=== PATIENT | male | born 1955 | race African-American/Black ===

== ENCOUNTER → 2016-09-05 | Outpatient (CLI) | payer MEDICARE | LOC: RAD 08:38 | PROVIDERS: ATTEND Specialist | DX: M54.16 Radiculopathy, lumbar region (principal) | CPT/HCPCS: 72148 ==

== ENCOUNTER → 2017-07-13 | Outpatient (CLI) | payer MEDICARE | LOC: LAB 17:17 | PROVIDERS: ATTEND Orthopaedic Surgery | DX: M51.16 Intervertebral disc disorders with radiculopathy, lumbar region (principal); Z53.8 Procedure and treatment not carried out for other reasons | CPT/HCPCS: 36415; 80307 ==

== ENCOUNTER → 2019-02-06 | Outpatient (CLI) | payer MEDICARE ==
--- NOTE | 2019-02-06 11:57 | RADIOLOGY REPORT (SQ) ---
EXAM DESCRIPTION: U/S ABD AORTIC SCREENING COMPLETED DATE/TIME: 02/06/2019 10:42 am REASON FOR STUDY: ENCOUNTER FOR SCREENING FOR CARDIOVASCULAR DISORDERS Z13.6 ENCOUNTER FOR SCREENIN G FOR CARDIOVASCULAR DISORDERS COMPARISON: None. TECHNIQUE: Static and dynamic grayscale images acquired of the aorta and stored on PACs. Selected co inna Doppler and spectral images recorded. LIMITATIONS: None. FINDINGS: AORTIC CALIBER MAXIMAL PROXIMAL: 2.4 cm. MID: 2.2 cm. DISTAL: 1.8 cm. Common iliac arteries are not visualized. IMPRESSION: NO ABDOMINAL AORTIC ANEURYSM. COMMENT: Aortic aneurysm imaging followup: Negative, no followup necessary. *Based upon the Society for Vascular Surgery Guidelines: J Vasc Surg. 2009 Oct;50(4 Suppl):S2-49 *For aortas of maximum diameter of 2.6-2.9 cm meeting the criteria for AAA (?1.5 x proximal normal se gment) TECHNICAL DOCUMENTATION: JOB ID: [id number] [employer]- All Rights Reserved Reading location - IP/workstation name: [email or web address]
== END ==
LOC: RAD 09:57
PROVIDERS: ATTEND Family Medicine
DX: Z13.6 Encounter for screening for cardiovascular disorders (principal); F17.210 Nicotine dependence, cigarettes, uncomplicated
CPT/HCPCS: 36415; 85025; 80053; 80061; 76706; G0103

== ENCOUNTER → 2019-02-06 | Outpatient (CLI) | payer MEDICARE ==
[2019-02-06 10:41] LABS: ABSOLUTE EOSINOPHILS # (AUTO) 0.6 10^3/uL (0.0-0.6); ABSOLUTE LYMPHOCYTES (AUTO) 1.6 10^3/uL (0.5-4.7); ABSOLUTE MONOCYTES (AUTO) 0.5 10^3/uL (0.1-1.4); ABSOLUTE NEUT (AUTO) 2.4 10^3/uL (1.7-8.2); BASOPHILS % (AUTO) 0.6 % (0-2); EOSINOPHILS % (AUTO) 11.2 % (0-6); HEMATOCRIT 37.3 % (37.9-51.0); HEMOGLOBIN 12.1 g/dL (13.5-17.0); LYMPHOCYTES % (AUTO) 31.4 % (13-45); MEAN CORPUSCULAR HEMOGLOBIN 24.7 pg (27.0-33.4); MEAN CORPUSCULAR HGB CONC 32.5 g/dL (32.0-36.0); MEAN CORPUSCULAR VOLUME 76 fl (80-97); MONOCYTES % (AUTO) 9.6 % (3-13); PLATELET COUNT 178 10^3/uL (150-450); RED BLOOD COUNT 4.91 10^6/uL (4.35-5.55); RED CELL DISTRIBUTION WIDTH 14.7 % (11.5-14.0); SEGMENTED NEUTROPHILS % (AUTO) 47.2 % (42-78); TOTAL CELLS COUNTED % (AUTO) 100 %
[2019-02-06 11:00] LABS: ALANINE AMINOTRANSFERASE 15 U/L (21-72); ALBUMIN 4.3 g/dL (3.5-5.0); ALKALINE PHOSPHATASE 82 U/L (38-126); ANION GAP 9 (5-19); ASPARTATE AMINO TRANSFERASE 24 U/L (17-59); BILIRUBIN,DIRECT 0.3 mg/dL (0.0-0.4); BILIRUBIN,TOTAL 0.3 mg/dL (0.2-1.3); BLOOD UREA NITROGEN 8 mg/dL (7-20); CALCIUM 11.7 mg/dL (8.4-10.2); CARBON DIOXIDE 30 mmol/L (22-30); CHLORIDE 104 mmol/L (98-107); CHOLESTEROL 142.71 mg/dL (0-200); GLUCOSE 98 mg/dL (75-110); POTASSIUM 4.1 mmol/L (3.6-5.0); SODIUM 142.9 mmol/L (137-145); TOTAL PROTEIN 7.8 g/dL (6.3-8.2); TRIGLYCERIDES 171 mg/dL (<150)
[2019-02-06 11:12] LABS: DIRECT LDL 67 mg/dL (<100)
[2019-02-06 11:33] LABS: VLDL CHOLESTEROL 34.2 mg/dL (10-31)
== END ==
LOC: OD 09:10
PROVIDERS: ATTEND Family Medicine
DX: Z12.5 Encounter for screening for malignant neoplasm of prostate (principal); Z13.1 Encounter for screening for diabetes mellitus; I10 Essential (primary) hypertension; Z13.220 Encounter for screening for lipoid disorders
CPT/HCPCS: 36415; 85025; 80053; 80061; G0103

== ENCOUNTER → 2019-02-07 | Outpatient (CLI) | payer MEDICARE ==
--- NOTE | 2019-02-07 19:38 | XCELERA REPORT ---
[address] [address] Transthoracic Echocardiogram Report Name: VAISHNAVI SOFIA Age: 64 yrs Gender: Male : 1955 Patient Status: Outpatient Patient Location: [facility] Study Date: 02/07/2019 02:15 PM Height: 70 in Weight: 180 lb BSA: 2.0 m2 Reason For Study: LV HYPERTROPHY ON EKG Ordering Physician: PHILIP JACK Performed By: Hieu Severino Interpretation Summary Poor basal LV visualization on apical views. No significant posterior pericardial effusion. Normal aortic root except calcification. Mild AV sclerosis, no no AR, 3 cusps AV. Mild mitral annular calcification, no MS, no MV, mild MR with mild LA enlargement, JOHN 36.5cc/m2. Concentric LVH mod, with apical hypertrophy. Probably basal LV hypokinesis in apical views. LVEF is normal >55-60%, disagree with biplane analysis by electromechanical assembly technician. No LV enlargement. Stage I LV diastolic dysfunction. R heart appears normal. TRmild, derived RVSP is normal and doesnot suggest pulm hypertension. MMode/2D Measurements & Calculations RVDd: 3.2 cm LVIDd: 4.8 cm FS: 26.8 % Ao root diam: IVSd: 1.1 cm LVIDs: 3.5 cm EDV(Teich): 3.1 cm LVPWd: 1.2 cm 106.6 ml Ao root area: ESV(Teich): 50.8 ml 7.6 cm2 LA dimension: EF(Teich): 52.3 % 4.0 cm LVLd ap4: 8.9 cm SV(MOD-sp4): EDV(MOD-sp4): 67.0 ml 113.0 ml LVLs ap4: 7.2 cm ESV(MOD-sp4): 46.0 ml EF(MOD-sp4): 59.3 % Doppler Measurements & Calculations MV E max rebekah: MV dec time: Ao V2 max: LV V1 max P.0 cm/sec 0.14 sec 130.9 cm/sec 1.8 mmHg MV A max rebekah: Ao max P.9 mmHgLV V1 max: 58.9 cm/sec 66.6 cm/sec MV E/A: 0.92 PA V2 max: PI end-d rebekah: TR max rebekah: 93.8 cm/sec 131.4 cm/sec 203.6 cm/sec PA max P.5 mmHg TR max P.6 mmHg Left Ventricle The left ventricle is normal in size. Apical hypertrophy is present. The echo findings are consistent with hypertrophic cardiomyopathy. IVS/PW = 1.99CM/1.52CM. The left ventricular ejection fraction is within normal limits. Doppler measurements suggest impaired left ventricular relaxation, which is associated with grade I/IV or mild diastolic dysfunction. Regional wall motion abnormalities cannot be excluded due to limited visualization. SEE PICTORALS, POOR APICAL VIEW, BASAL LV INCOMPLETE VISUALIZATION, SUSPECT HYPOKINESIS. There is no thrombus. Right Ventricle The right ventricle is normal size. The right ventricular systolic function is normal. Atria The right atrium is normal in size. The left atrial size is normal. There is no Doppler evidence for an interatrial shunt. Mitral Valve There is mild mitral annular calcification. The mitral valve is normal in structure and function. There is no evidence of mitral valve prolapse. There is no mitral valve stenosis. There is a mild amount of mitral regurgitation. Aortic Valve The aortic valve is trileaflet. The aortic valve opens well. The aortic valve is sclerotic and shows some degree of functional abnormality. There is no aortic valvular vegetation. There is no aortic valve stenosis. No aortic regurgitation is present. Tricuspid Valve The tricuspid valve is not well visualized, but is grossly normal. There is a trace or physiologic amount of tricuspid regurgitation. Right ventricular systolic pressure is normal. Pulmonic Valve The pulmonic valve is not well visualized. There is a trace or physiologic amount of pulmonic regurgitation. Great Vessels There is aortic root sclerosis/calcification. Effusions There is no pericardial effusion. I WMSI = 1.25 % Normal = 75 Segments Size X - Cannot 1 - Normal 2 - 3 - Akinetic4 - 1-2 small Interpret Hypokinetic Dyskinetic 3-5 moderate 5 - 6-14 large Aneurysmal 15-16 diffuse : PHILIP JACK > Fer Walters
== END ==
LOC: SP 13:30
PROVIDERS: ATTEND Family Medicine
DX: I51.7 Cardiomegaly (principal); R09.89 Other specified symptoms and signs involving the circulatory and respiratory systems
CPT/HCPCS: 93306

== ENCOUNTER → 2019-02-11 | Outpatient (CLI) | payer MEDICARE ==
--- NOTE | 2019-02-11 11:29 | RADIOLOGY REPORT (SQ) ---
EXAM DESCRIPTION: CAROTID DOPPLER COMPLETED DATE/TIME: 02/11/2019 9:43 am REASON FOR STUDY: BRUIT R09.89 OTH SYMPTOMS AND SIGNS INVOLVING THE CIRC AND RESP SY COMPARISON: None. TECHNIQUE: Grayscale ultrasound, Doppler velocity and spectra, and color Doppler images acquired of the extra-cranial carotid and vertebral arteries. Images stored on PACS. LIMITATIONS: None. FINDINGS: RIGHT CAROTID CCA Velocities: Within normal limits. ICA Velocities Peak systolic 80 cm/s. End diastolic 31 cm/s. Proximal ICA/CCA peak systolic ratio 0.8. Spectra normal. No significant plaque. LEFT CAROTID CCA Velocities: Within normal limits. ICA Velocities Peak systolic 92 cm/s. End diastolic 33 cm/s. Proximal ICA/CCA peak systolic ratio 0.94. There is limited plaque in the carotid bulb. VERTEBRAL ARTERIES: Antegrade flow. Normal waveforms. SUBCLAVIAN ARTERIES: No finding. OTHER: No other significant finding. IMPRESSION: NO HEMODYNAMICALLY SIGNIFICANT STENOSIS. COMMENT: Quality ID #[id number]: Velocity criteria are extrapolated from the diameter data as defined by t he Society of Radiologists in Ultrasound Consensus Conference. Radiology 2003: 229; 340-346. TECHNICAL DOCUMENTATION: JOB ID: [id number] [employer]- All Rights Reserved Reading location - IP/workstation name: [email or web address]
== END ==
LOC: SP 08:42
PROVIDERS: ATTEND Family Medicine
DX: I51.7 Cardiomegaly (principal)
CPT/HCPCS: 93880

== ENCOUNTER → 2019-03-07 | Outpatient (CLI) | payer MEDICARE ==
--- NOTE | 2019-03-07 11:07 | RADIOLOGY REPORT (SQ) ---
EXAM DESCRIPTION: CHEST PA/LATERAL COMPLETED DATE/TIME: 03/07/2019 10:53 am REASON FOR STUDY: RETINAL VEIN OCCLUSION LEFT EYE COMPARISON: None. EXAM PARAMETERS: NUMBER OF VIEWS: two views TECHNIQUE: Digital Frontal and Lateral radiographic views of the chest acquired. RADIATION DOSE: NA LIMITATIONS: none FINDINGS: LUNGS AND PLEURA: No opacities, masses or pneumothorax. No pleural effusion. MEDIASTINUM AND HILAR STRUCTURES: No masses or contour abnormalities. HEART AND VASCULAR STRUCTURES: Heart normal size. No evidence for failure. BONES: No acute findings. HARDWARE: None in the chest. OTHER: No other significant finding. IMPRESSION: NO SIGNIFICANT RADIOGRAPHIC FINDING IN THE CHEST. TECHNICAL DOCUMENTATION: JOB ID: [id number] [employer]- All Rights Reserved Reading location - IP/workstation name: [email or web address]
[2019-03-07 12:03] LABS: IRON(TIBC) 77.8 ug/dL (49-181)
== END ==
LOC: OD 10:28
PROVIDERS: ATTEND Family Medicine
DX: H34.8122 Central retinal vein occlusion, left eye, stable (principal); D50.8 Other iron deficiency anemias; E83.52 Hypercalcemia
CPT/HCPCS: 36415; 71046; 82164; 82330; 82728; 83540; 83550; 83970

== ENCOUNTER 2019-10-01 10:37 | Emergency (ER) | payer MEDICARE ==
[2019-10-01] MEDS ORDERED: PREDNISONE 20 MG TABLET PO ONE (10:55)
--- NOTE | 2019-10-01 11:03 | ER Document Report ---
HPI - HPI Time Seen by Provider: 10/01/19 10:52 Pain Level: 2 Context: CHIEF COMPLAINT: Sciatic symptoms for 1 week HPI: 64-year-old male presenting to the emergency department complaining of sciatic symptoms in the right leg for 1 week. Complains of pain that seems to radiate through the right gluteus and down the lateral right leg to the ankle. Patient states symptoms have been present for approximately a week. Denies incontinence of urine or bowel. Denies weakness in the leg. Does report a history of low back surgery [address] Marquez. States he has an appointment with our office October 15. No fever. No abdominal pain. No rash ROS: See HPI - all other systems were reviewed and are otherwise negative Constitutional: no fever GI: no vomiting, no diarrhea, no abdominal pain : no dysuria Integumentary: no rash Allergy: no hives Musculoskeletal: + extremity pain or swelling Neurological: no weakness MEDICATIONS: I agree with the patient medications as charted by the RN. ALLERGIES: I agree with the allergies as charted by the RN. PAST MEDICAL HISTORY/PAST SURGICAL HISTORY: Reviewed and agree as charted by RN. SOCIAL HISTORY: Reviewed and agree as charted by RN. FAMILY HISTORY: No significant familial comorbid conditions directly related to patient complaint EXAM: Reviewed vital signs as charted by RN. CONSTITUTIONAL: Alert and oriented and responds appropriately to questions. Well-appearing; well-nourished, mild distress secondary to pain HEAD: Normocephalic; atraumatic EYES: PERRL; Conjunctivae clear, sclerae non-icteric ENT: normal nose; no rhinorrhea; moist mucous membranes; pharynx without lesions noted NECK: Supple without meningismus; non-tender; no cervical lymphadenopathy, no masses CARD: symmetric distal pulses RESP: Normal chest excursion without splinting or tachypnea ABD/GI: Normal bowel sounds; non-distended; soft, non-tender, no rebound, no guarding; no palpable organomegaly or masses. BACK: The back appears normal and is non-tender to palpation in the lumbar back, there is no CVA tenderness EXT: Normal ROM in all joints; non-tender to palpation; no cyanosis, no effusions, no edema SKIN: Normal color for age and race; warm; dry; good turgor; no acute lesions noted NEURO: Moves all extremities equally; Motor and sensory function intact. Strength equal 5/5 bilateral lower extremities. Sensation intact and equal bilateral lower extremities. Straight leg raise is negative. No saddle anesthesia on exam. DTRs 2+ intact and equal bilateral lower extremities. PSYCH: The patient's mood and manner are appropriate. Grooming and personal hygiene are appropriate. MDM: 64-year-old male with sciatic symptoms over the last week. States he has had these before and it is typical of the sciatica he gets. No fever. No incontinence of urine or bowel. No saddle anesthesia on exam suggesting cauda equina. He has an appointment with his orthopedic in [address] him on a short course of pain medication steroids with return instructions - REPRODUCTIVE Reproductive: DENIES: : Past Medical History - Social History Smoking Status: Current Every Day Smoker Frequency of alcohol use: None Drug Abuse: None Family History: Reviewed & Not Pertinent Patient has suicidal ideation: No Patient has homicidal ideation: No Vertical Provider Document - INFECTION CONTROL TRAVEL OUTSIDE OF THE [place] IN LAST 30 DAYS: No Course - Vital Signs Vital signs: Temp Pulse Resp BP Pulse Ox 97.8 F 88 16 183/102 H 97 10/01/19 10:47 10/01/19 10:47 10/01/19 10:47 10/01/19 10:47 10/01/19 10:47 Discharge - Discharge Clinical Impression: Sciatica, right side Condition: Stable Disposition: HOME, SELF-CARE Additional Instructions: Medications as prescribed no driving if taking narcotics for pain. Follow-up closely with your orthopedic physician call today to advise them of your ER visit. Return to the emergency department for incontinence of urine or bowel Prescriptions: Prednisone [Deltasone 20 mg Tablet] 2 tab PO DAILY 5 Days #10 tablet Hydrocodone/Acetaminophen [Magnolia 5-325 mg Tablet] 1 tab PO Q4 PRN #10 tablet PRN Reason: Referrals: PHILIP JACK MD [Primary Care Provider] - Follow up as needed WILBERTO MARQUEZ MD [ASSOCIATE] - Follow up as needed
[2019-10-01 11:17] VITALS: BP 182/88
== END 2019-10-01 11:24 | disposition home or self-care (01) ==
LOC: ER 10:37
DX: M54.31 Sciatica, right side (principal); F17.200 Nicotine dependence, unspecified, uncomplicated
CPT/HCPCS: 99283; A9270; J7512

== ENCOUNTER 2019-10-07 10:36 | Emergency (ER) | payer MEDICARE ==
[2019-10-07 11:07] VITALS: BP 167/78
--- NOTE | 2019-10-07 11:53 | ER Document Report ---
HPI - HPI Patient complains to provider of: Low back pain Time Seen by Provider: 10/07/19 11:34 Onset: Other - 2 Weeks Onset/Duration: Persistent Quality of pain: Achy Pain Level: 3 Context: She presents complaining of low back pain for the past 2 weeks. Patient states that he was here recently and received a prescription for pain medicine. Patient denies any fever or urinary symptoms. Patient does have a history of chronic back pain and previous spinal surgery. Patient has made appointment to see his surgeon but is not until 8 days. Patient states pain radiates to the right lower extremity Associated Symptoms: Other - Low back pain. denies: Fever, Nausea, Vomiting Exacerbated by: Movement Relieved by: Denies Similar symptoms previously: Yes Recently seen / treated by doctor: Yes - ROS ROS below otherwise negative: Yes Systems Reviewed and Negative: Yes All other systems reviewed and negative - CONSTITUTIONAL Constitutional: DENIES: Fever, Chills - NEURO Neurology: DENIES: Weakness - GASTROINTESTINAL Gastrointestinal: DENIES: Nausea - MUSCULOSKELETAL Musculoskeletal: REPORTS: Extremity pain, Back Pain - DERM Skin Color: Normal Skin Problems: None Past Medical History - General Information source: Patient - Social History Smoking Status: Current Every Day Smoker Frequency of alcohol use: None Drug Abuse: None Occupation: None Family History: Reviewed & Not Pertinent Patient has suicidal ideation: No Patient has homicidal ideation: No - Past Medical History Cardiac Medical History: Reports: Hx Hypertension Musculoskeletal Medical History: Reports Hx Arthritis Past Surgical History: Reports: Hx Orthopedic Surgery Vertical Provider Document - CONSTITUTIONAL Agree With Documented VS: Yes Exam Limitations: No Limitations General Appearance: WD/WN, No Apparent Distress Notes: PHYSICAL EXAMINATION: GENERAL: Well-appearing, well-nourished and in no acute distress. HEAD: Atraumatic, normocephalic. EYES: sclera clear, anicteric, conjunctiva are normal. ENT: nares patent, Moist mucous membranes. NECK: Normal range of motion, supple no lymphadenopathy LUNGS: respirations unlabored HEART: Regular rate and rhythm without murmurs EXTREMITIES: Normal range of motion, no pitting or edema. No cyanosis. Gait normal, pt ambulates without difficulty BACK: Right lumbar paraspinal tenderness, no midline tenderness, no deformities or step-offs. No CVA tenderness. NEUROLOGICAL: Cranial nerves grossly intact. Normal speech, normal gait. No saddle anesthesia. PSYCH: Normal mood, normal affect. SKIN: Warm, Dry, normal turgor, no rashes or lesions noted. - INFECTION CONTROL TRAVEL OUTSIDE OF THE [place] IN LAST 30 DAYS: No Course - Re-evaluation Re-evalutation: 10/07/19 11:49 Patient presents with flareup of low back pain. Patient does have a history of back surgery distantly in the past. Patient does have an appointment with his orthopedic surgeon in 8 days. Patient advised that the emergency department does not refill narcotic pain medication. Patient encouraged to see his primary doctor for any persistent pain problems. Patient advised that he may need to see pain management for any persistent pain symptoms. Patient advised that we will give a short course of medicine but that he may not be able to get refills for chronic painful conditions in the future. The patient presents with low back pain without signs of spinal cord compression, cauda equina syndrome, infection, aneurysm, or other serious etiology. The patient is neurologically intact. Given the extremely risk of these diagnoses further testing and evaluation for these possibilities does not appear to be indicated at this time. Patient has been instructed to return if the symptoms worsen or change in any way. - Vital Signs Vital signs: Temp Pulse Resp BP Pulse Ox 98.6 F 69 16 167/78 H 100 10/07/19 11:06 10/07/19 11:06 10/07/19 11:06 10/07/19 11:06 10/07/19 11:06 Discharge - Discharge Clinical Impression: Sciatica, right side Condition: Stable Disposition: HOME, SELF-CARE Instructions: Ice Packs ([facility]), Low Back Pain ([facility]), Oral Narcotic Medication ([facility]) Additional Instructions: Return immediately for any new or worsening symptoms Followup with your primary care provider, call tomorrow to make a followup appointment Follow-up with your primary doctor. They may need to make a referral for pain management to help with your pain symptoms. Keep your orthopedic appointment as scheduled Prescriptions: Lidocaine [Lidoderm 5% (700 mg) Transdermal Patch] 1 patch TP DAILY PRN #10 adh..patch PRN Reason: Tramadol HCl [Ultram 50 mg Tablet] 50 mg PO ASDIR PRN #20 tablet PRN Reason: Referrals: PHILIP JACK MD [Primary Care Provider] - Follow up tomorrow [facility] [Provider Group] - Follow up as needed
[2019-10-07] MEDS ORDERED: ACETAMINOPHEN 325 MG TABLET PO ONE (11:54)
[2019-10-07] MEDS ORDERED: LIDOCAINE 5% (700 MG) TRANSDERMAL ADH..PATCH TP ONE (11:54)
== END 2019-10-07 12:31 | disposition home or self-care (01) ==
LOC: ER 10:36
DX: M54.41 Lumbago with sciatica, right side (principal); F17.200 Nicotine dependence, unspecified, uncomplicated; I10 Essential (primary) hypertension
CPT/HCPCS: A9270 ×2